=== PATIENT | male | born 1960 | race Caucasian/White ===

== ENCOUNTER 2016-08-13 17:38 | Emergency (ER) | payer MEDICARE ==
--- NOTE | 2016-08-13 18:27 | UC ---
Abdominal Pain Male HPI - History of Current Complaint Chief Complaint: UCDizziness Stated Complaint: DIZZY/LIGHT HEADED,VOMITING,DIABETIC Time Seen by Provider: 08/13/16 18:16 - Allergies/Home Medications Allergies/Adverse Reactions: Allergies Allergy/AdvReac Type Severity Reaction Status Date / Time No Known Allergies Allergy Verified 09/20/14 09:46 Home Medications: Home Medications Sitagliptin Phosphate [Januvia] 100 mg PO DAILY 08/13/16 [History Confirmed ] glipiZIDE TAB.XL* [Glucotrol XL*] 20 mg PO DAILY 08/13/16 [History Confirmed ] PMH/Surg Hx/FS Hx/Imm Hx - Surgical History Surgical History: Yes Surgery Procedure, Year, and Place: LEFT EAR SX - Social History Alcohol Use: None Substance Use Type: None Smoking Status (MU): Current Some Day Smoker Type: Cigarettes Amount Used/How Often: 1/2 PPD Length of Time of Smoking/Using Tobacco: Long time Have You Smoked in the Last Year: Yes Physical Exam Vital Signs: Initial Vital Signs Temp 97.4 F 08/13/16 17:46 Pulse 77 08/13/16 17:46 Resp 18 08/13/16 17:46 BP 142/87 08/13/16 17:46 Pulse Ox 98 08/13/16 17:46
[2016-08-13] MEDS ORDERED: Ondansetron ODT TAB* 4 MG PO ONE (18:28)
--- NOTE | 2016-08-13 18:45 | UC ---
Dizzy HPI HPI Summary: 55 yo male the onset of nausea/weakness/dizziness that started this afternoon he vomited once an now feels much better no CP or SOB no abd pain no UTI symptoms Hx TBI with recent change in depakote no BOLAÑOS - History Of Current Complaint Chief Complaint: UCDizziness Stated Complaint: DIZZY/LIGHT HEADED,VOMITING,DIABETIC Time Seen by Provider: 08/13/16 18:16 Hx Obtained From: Patient Onset/Duration: Sudden Onset, Lasting Hours Timing: Constant Severity Initially: Moderate Severity Currently: Mild Pain Intensity: 2 Pain Scale Used: 0-10 Numeric Character: Lightheaded, Weak Aggravating Factor(s): Nothing Associated Signs And Symptoms: Positive: Nausea, Vomiting, Diaphoresis - Allergies/Home Medications Allergies/Adverse Reactions: Allergies Allergy/AdvReac Type Severity Reaction Status Date / Time No Known Allergies Allergy Verified 09/20/14 09:46 Home Medications: Home Medications Sitagliptin Phosphate [Januvia] 100 mg PO DAILY 08/13/16 [History Confirmed ] glipiZIDE TAB.XL* [Glucotrol Xl*] 20 mg PO DAILY 08/13/16 [History Confirmed ] PMH/Surg Hx/FS Hx/Imm Hx Previously Healthy: Yes Endocrine History: Diabetes GI/ History: Gastroesophageal Reflux - Surgical History Surgical History: Yes Surgery Procedure, Year, and Place: LEFT EAR SX - Family History Known Family History: Positive: Hypertension - Social History Alcohol Use: None Substance Use Type: None Smoking Status (MU): Current Some Day Smoker Type: Cigarettes Amount Used/How Often: 1/2 PPD Length of Time of Smoking/Using Tobacco: Long time Have You Smoked in the Last Year: Yes Review of Systems Constitutional: Negative Skin: Negative Eyes: Negative ENT: Negative Respiratory: Negative Cardiovascular: Negative Gastrointestinal: Vomiting Genitourinary: Negative Motor: Negative Neurovascular: Negative Musculoskeletal: Negative Neurological: Negative Psychological: Negative All Other Systems Reviewed And Are Negative: Yes Physical Exam Triage Information Reviewed: Yes Appearance: Well-Appearing, No Pain Distress, Well-Nourished Vital Signs: Initial Vital Signs Temp 97.4 F 08/13/16 17:46 Pulse 77 08/13/16 17:46 Resp 18 08/13/16 17:46 BP 142/87 08/13/16 17:46 Pulse Ox 98 08/13/16 17:46 Vital Signs Reviewed: Yes Eyes: Positive: Conjunctiva Clear ENT: Positive: Normal ENT inspection, TMs normal. Negative: Nasal congestion, Nasal drainage, Trismus, Muffled/hoarse voice Neck: Positive: Supple, Nontender, No Lymphadenopathy Respiratory: Positive: Lungs clear, Normal breath sounds, No respiratory distress, No accessory muscle use Abdomen Description: Positive: Nontender, Soft Bowel Sounds: Positive: Present Musculoskeletal: Positive: ROM Intact, No Edema Neurological: Positive: Alert, Muscle Tone Normal Skin Exam: Normal Diagnostics - EKG Cardiac Rate: NL Cardiac Rhythm: Sinus: Normal Ectopy: None ST Segment: Normal Re-Evaluation - Re-Evaluation First Eval Change: Improved - (-) tilt Dizzy Course/Dx - Differential Dx/Diagnosis Provider Diagnoses: dizziness (non specific) Discharge - Discharge Plan Condition: Stable Disposition: HOME Patient Education Materials: Dizziness (ED) Referrals: Reno Garcia MD [Primary Care Provider] - 3 Days Additional Instructions: blood work pending recheck for new or worsening symptoms
[2016-08-13 19:24] VITALS: BP 148/73
[2016-08-14 14:20] LABS: Hematocrit 43 % (42-52); Hemoglobin 14.5 g/dl (14.0-18.0); Mean Corpuscular HGB Conc 34 g/dl (31-36); Mean Corpuscular Hemoglobin 29 pg (27-31); Mean Corpuscular Volume 86 fL (80-94); Mean Platelet Volume 8 um3 (7.4-10.4); Red Blood Count 5.01 10^6/ul (4.0-5.4); Red Cell Distribution Width 14 % (10.5-15)
[2016-08-14 14:31] LABS: Albumin 4.5 g/dL (3.2-5.2); BUN/Creatinine Ratio 19.8 (8-20); Calcium 9.6 mg/dL (8.6-10.3); EGFR African American 127.2 (>60); EGFR Non-African American 98.9 (>60); Globulin 2.4 g/dL (2-4); Potassium 4.6 mmol/L (3.5-5.0); Total Bilirubin 0.3 mg/dL (0.2-1.0); Total Protein 6.9 g/dL (6.4-8.9)
[2016-08-14 14:42] LABS: Add Diff/Slide Review? Slide Review Added; Comments Flag Yes
== END 2016-08-13 19:38 | disposition home or self-care (01) ==
LOC: UCCORT 17:38
DX: R42 Dizziness and giddiness (principal); R11.2 Nausea with vomiting, unspecified; E11.9 Type 2 diabetes mellitus without complications; K21.9 Gastro-esophageal reflux disease without esophagitis; Z72.0 Tobacco use
CPT/HCPCS: 36415; 80053; 80164; 81003; 85025; 93005; 99213; A9270-GY; G0463

== ENCOUNTER 2018-10-07 11:30 | Emergency (ER) | payer OTHER ==
[2018-10-07 12:07] VITALS: BP 154/71
--- NOTE | 2018-10-07 12:23 | UC ---
Complaint Male HPI - HPI Summary HPI Summary: Pt lives in a fpc. He apparaently masturbates frequently and he states he had a dream about a woman and "I was able to complete my dream but then I had groin pain" Denies fever or chills, no testicular or penile pain. Caregiver states he walks on a treadmill a lot. No known injury - History of Current Complaint Chief Complaint: UCGU Stated Complaint: GROIN PAIN Time Seen by Provider: 10/07/18 11:59 Hx Obtained From: Patient, Family/Manager Of Procurement Onset/Duration: Gradual Onset Timing: Lasting Hours - During the night patient complained of pain to the right inguinal area, but now he is pain free. Severity Initially: Mild Severity Currently: None Pain Intensity: 0 Location: None Aggravating Factor(s): Nothing Alleviating Factor(s): Other - Pain has resolved - Allergies/Home Medications Allergies/Adverse Reactions: Allergies Allergy/AdvReac Type Severity Reaction Status Date / Time No Known Allergies Allergy Verified 10/07/18 12:07 Home Medications: Home Medications Atorvastatin* [Lipitor*] 10 mg PO 1700 10/07/18 [History Confirmed 10/07/18] Docusate Sodium 200 mg PO DAILY 10/07/18 [History Confirmed 10/07/18] Fluoxetine HCl [Prozac] 20 mg PO DAILY 10/07/18 [History Confirmed 10/07/18] Metformin HCl 850 mg PO DAILY 10/07/18 [History Confirmed 10/07/18] PMH/Surg Hx/FS Hx/Imm Hx Previously Healthy: Yes Cardiovascular History: Hypertension - Surgical History Surgical History: Yes Surgery Procedure, Year, and Place: LEFT EAR -TYMPANOPLASTY ( W/ DR KUO). CATARACTS - Family History Known Family History: Positive: Hypertension - Social History Alcohol Use: None Substance Use Type: None Smoking Status (MU): Current Some Day Smoker Type: Cigarettes Amount Used/How Often: 1/2 PPD Length of Time of Smoking/Using Tobacco: Long time Have You Smoked in the Last Year: Yes Review of Systems All Other Systems Reviewed And Are Negative: Yes Genitourinary: Positive: Other - Pain was in the right inguinal area but is now pain free.. Negative: Dysuria, Hematuria, Frequency, Urgency, Vaginal/Penile Burning, Vaginal/Penile Itching, Vaginal/Penile Discharge, Vaginal/Penile Pain, Vaginal/Penile Tenderness Is Patient Immunocompromised?: No Physical Exam Triage Information Reviewed: Yes Appearance: Well-Appearing, No Pain Distress, Well-Nourished Vital Signs: Initial Vital Signs Temp 98.4 F 10/07/18 11:59 Pulse 87 10/07/18 11:59 Resp 16 10/07/18 11:59 BP 154/71 10/07/18 11:59 Pulse Ox 100 10/07/18 11:59 Vital Signs Reviewed: Yes Male Genital Exam: Positive: Normal Genitalia, No Hernia, Inguinal Tenderness - Minimal tenderness right inguinal area, no lymphadenopathy. Negative: Epididymal Tenderness, Erythema, Hernia Mass, Scrotum Tenderness (R), Scrotum Tenderness (L), Testicular Tenderness (R), Testicular Tenderness (L), Urethral Discharge Musculoskeletal: Positive: Strength Intact, ROM Intact Neurological Exam: Normal Psychological Exam: Normal Skin Exam: Normal Complaint Male Course/Dx - Course Course Of Treatment: Pt is comfortable here. He states he has had a UTI in the past. Urinalysis negative. Will treat for groin strain and follow up with PCP if no improvement or if worsening pain. - Differential Dx/Diagnosis Provider Diagnosis: Strain of right inguinal muscle Discharge - Sign-Out/Discharge Documenting (check all that apply): Patient Departure All imaging exams completed and their final reports reviewed: No Studies - Discharge Plan Condition: Good Disposition: HOME Patient Education Materials: Groin Strain (ED) Referrals: Reno Garcia MD [Primary Care Provider] - Additional Instructions: May apply heat to the sore area as needed, Tylenol for pain. Follow up with Dr. Garcia in 2-3 days if no improvement. If pain worsens go to the ER for evaluation. - Billing Disposition and Condition Condition: GOOD Disposition: Home - Attestation Statements Provider Attestation: I was available for consult. This patient was seen by the [facility]. The patient was not presented to, seen by, or examined by me. -Sylvia
== END 2018-10-07 12:41 | disposition home or self-care (01) ==
LOC: UCCORT 11:30
DX: S76.811A Strain of other specified muscles, fascia and tendons at thigh level, right thigh, initial encounter (principal); X50.0XXA Overexertion from strenuous movement or load, initial encounter; Y93.89 Activity, other specified; Y92.099 Unspecified place in other non-institutional residence as the place of occurrence of the external cause; I10 Essential (primary) hypertension; F17.210 Nicotine dependence, cigarettes, uncomplicated
CPT/HCPCS: 81003; 99211; G0463